=== PATIENT | male | born 1985 | race Caucasian/White ===

== ENCOUNTER 2020-01-01 11:12 | Emergency (ER) | payer MEDICAID ==
[~2020-01-01] VITALS: Ht 167.6 cm; Wt 72.7 kg
[2020-01-01 12:39] LABS: BASOPHILS % (AUTO) 0.3 % (0.0-2.0); EOSINOPHILS % (AUTO) 1.7 % (1.0-6.0); HEMATOCRIT 41.8 % (41-53); LYMPHOCYTES # (AUTO) 1.4 K/uL (1.0-4.8); LYMPHOCYTES % (AUTO) 11.4 % (22.0-44.0); MEAN CORPUSCULAR HEMOGLOBIN 30.9 pg (26.0-34.0); MEAN CORPUSCULAR HGB CONC 33.4 G/dL (31.0-37.0); MEAN CORPUSCULAR VOLUME 93 fL (80-100); MONOCYTES # (AUTO) 0.6 K/uL (0.1-1.0); MONOCYTES % (AUTO) 5.3 % (2.0-9.0); NEUTROPHILS # (AUTO) 9.7 K/uL (1.8-7.7); NEUTROPHILS % (AUTO) 81.3 % (40.0-70.0); PLATELET COUNT (AUTO) 253 K/uL (150-450); RED BLOOD CELL COUNT(AUTO) 4.52 MIL/uL (4.50-5.90); RED CELL DISTRIBUTION WIDTH 13.3 % (11.5-14.5)
[2020-01-01 12:46] LABS: ANION GAP 15 mmol/L (8-16); CARBON DIOXIDE 24 mmol/L (22-29); CHLORIDE 108 mmol/L (98-107); CREATININE 0.69 mg/dL (0.60-1.30); GLOMERULAR FILTR. RATE CALC > 60 mL/min (>60); GLUCOSE,RANDOM 104 mg/dL (70-110); POTASSIUM 3.7 mmol/L (3.5-5.1); SODIUM SERUM 147 mmol/L (136-145); UREA NITROGEN, BLOOD 12 mg/dL (7-18)
[2020-01-01 12:52] LABS: ALANINE AMINOTRANSFERASE 26 U/L (12-78); ALBUMIN 4.7 g/dL (3.4-5.0); ALKALINE PHOSPHATASE 70 U/L (46-116); ASPARTATE AMINOTRANSFERASE 32 U/L (15-37); BILIRUBIN,TOTAL 0.8 mg/dL (0.1-1.0); LIPASE 75 U/L (73-393); TOTAL PROTEIN, SERUM 7.9 g/dL (6.4-8.2)
[2020-01-01 13:50] LABS: INFLUENZA TYPE A NEGATIVE FOR TYPE A (NEGATIVE); INFLUENZA TYPE B NEGATIVE FOR TYPE B (NEGATIVE)
[2020-01-01 14:16] VITALS: BP 125/97
== END 2020-01-01 14:19 | disposition home or self-care (01) ==
LOC: EMS 11:16
DX: J06.9 Acute upper respiratory infection, unspecified (principal); J20.9 Acute bronchitis, unspecified; F12.90 Cannabis use, unspecified, uncomplicated; Z98.890 Other specified postprocedural states
CPT/HCPCS: 87804